=== PATIENT | male | born 1975 | race Two or more races ===

== ENCOUNTER 2024-07-16 14:03 | Emergency (ER) | payer OTHER ==
[~2024-07-16] VITALS: Ht 170.2 cm; Wt 70.8 kg
[2024-07-16] MEDS ORDERED: ZESTRIL20 MG (15:15)
[2024-07-16] MEDS ORDERED: hydrALAZINE HCL 20 MG VIAL IV ONE (16:15)
[2024-07-16] MEDS ORDERED: hydrALAZINE HCL 20 MG VIAL ONE (16:26)
[2024-07-16 16:38] LABS: HEMATOCRIT 44.2 % (39.0-48.0); HEMOGLOBIN 15.1 g/dL (13-16.00); MEAN CELL VOLUME 88.7 fL (80.0-100.00); MEAN CORPUSCULAR HEMOGLOBIN 30.3 pg (27.00-32.0); MEAN CORPUSCULAR HGB CONC 34.1 g/dl (32.0-36.0); PLATELET COUNT 226 K/uL (150-450); RED BLOOD COUNT 4.98 M/uL (4.00-6.00); RED CELL DISTRIBUTION WIDTH 12.4 % (11.5-14.5)
[2024-07-16 17:04] LABS: ALBUMIN 4.1 gm/dL (3.4-5.0); BILIRUBIN TOTAL 0.48 mg/dL (0.3-1.2); CALCIUM 9.2 mg/dL (8.5-10.1); CREATININE SERUM 0.94 mg/dL (0.70-1.30); GFR 86.02; POTASSIUM 3.79 mEq/L (3.5-5.1); TOTAL PROTEIN 7.1 gm/dL (6.4-8.2)
[2024-07-16] MEDS ORDERED: FUROsemide 40 MG/4 ML VIAL IV ONE (18:15)
[2024-07-16] MEDS ORDERED: FUROsemide 40 MG/4 ML VIAL ONE (18:20)
[2024-07-16] MEDS ORDERED: HYZAAR 100-251 EACH PO (19:47)
== END 2024-07-16 20:23 | disposition home or self-care (01) ==
LOC: ER 14:26
PROVIDERS: General Practice
DX: I10 Essential (primary) hypertension (principal)